=== PATIENT | female | born 1985 | race Caucasian/White ===

== ENCOUNTER → 2017-01-01 | Outpatient (CLI) | payer OTHER ==
[~2017-01-01] MED LIST: INSU1INJ SC; MTR600X PO; OXYC-57 PO; PRENTAB65 PO; SERT50TA PO
[2017-01-01 12:34] LABS: URINE APPEARANCE CLEAR (CLEAR); URINE BILIRUBIN NEG (NEG); URINE COLOR DK YELLOW; URINE EPITHELIAL CELL AUTO >30 /lpf (0-5); URINE NITRITE NEG (NEG); URINE SPECIFIC GRAVITY 1.019 (1.000-1.030); UROBILINOGEN NEG (NEG)
[2017-01-01 12:35] LABS: MANUAL MICROSCOPIC REQUIRED? NO; REVIEW REQ? NO
== END | disposition home or self-care (01) ==
LOC: C.LABSPEC 11:14
PROVIDERS: ATTEND Obstetrics & Gynecology
DX: Z34.00 Encounter for supervision of normal first pregnancy, unspecified trimester (principal)

== ENCOUNTER → 2017-01-07 | Outpatient (CLI) | payer OTHER | END | disposition home or self-care (01) | LOC: C.PAPS 09:01 | PROVIDERS: ATTEND Obstetrics & Gynecology | DX: Z34.01 Encounter for supervision of normal first pregnancy, first trimester (principal) ==

== ENCOUNTER → 2017-01-07 | Outpatient (CLI) | payer OTHER ==
[2017-01-12 00:15] LABS: CHLAMYDIA TRACH RNA*** NOT DETECTED (NOT DETECTED); GC (NEIS GONORRHOEAE)RNA** NOT DETECTED (NOT DETECTED)
== END | disposition home or self-care (01) ==
LOC: C.LABSPEC 17:38
PROVIDERS: ATTEND Obstetrics & Gynecology
DX: Z34.00 Encounter for supervision of normal first pregnancy, unspecified trimester (principal)

== ENCOUNTER → 2017-01-08 | Outpatient (CLI) | payer OTHER ==
[2017-01-08 09:34] LABS: BASO % 0.1 %; BASO ABS # 0.01 K/uL (0-0.2); COMPLETE YES; EOS % 0.9 %; HEMATOCRIT 39.3 % (37-47); IG% 0.2 %; LYMPH % 16.8 %; LYMPH ABS # 1.65 K/uL (1.2-3.4); MEAN CELL VOLUME 84.3 fL (80-100); MEAN CORPUSCULAR HEMOGLOBIN 28.5 pg (25-34); MEAN CORPUSCULAR HGB CONC 33.8 g/dl (32-36); MEAN PLATELET VOLUME 9.5 fL (7.4-10.4); PLATELET COUNT 312 K/uL (130-400); RED BLOOD COUNT 4.66 M/uL (4.2-5.4); WHITE BLOOD COUNT 9.83 K/uL (4.8-10.8)
== END | disposition home or self-care (01) ==
LOC: C.LAB 07:16
PROVIDERS: ATTEND Obstetrics & Gynecology
DX: Z34.00 Encounter for supervision of normal first pregnancy, unspecified trimester (principal)

== ENCOUNTER → 2017-03-04 | Outpatient (CLI) | payer OTHER ==
[2017-03-04 17:59] LABS: GTGD 50 Grams
== END | disposition home or self-care (01) ==
LOC: C.LAB1850 15:58
PROVIDERS: ATTEND Obstetrics & Gynecology
DX: Z34.01 Encounter for supervision of normal first pregnancy, first trimester (principal)

== ENCOUNTER → 2017-03-13 | Outpatient (CLI) | payer OTHER | END | disposition home or self-care (01) | LOC: C.LAB 07:45 | PROVIDERS: ATTEND Obstetrics & Gynecology | DX: O28.9 Unspecified abnormal findings on antenatal screening of mother (principal); Z3A.00 Weeks of gestation of pregnancy not specified ==

== ENCOUNTER → 2017-05-12 | Outpatient (CLI) | payer OTHER ==
[2017-05-12 09:47] LABS: URINE APPEARANCE CLEAR (CLEAR); URINE BILIRUBIN NEG (NEG); URINE COLOR YELLOW; URINE EPITHELIAL CELL AUTO >30 /lpf (0-5); URINE NITRITE NEG (NEG); URINE SPECIFIC GRAVITY 1.021 (1.000-1.030); UROBILINOGEN NEG (NEG)
[2017-05-12 09:55] LABS: MANUAL MICROSCOPIC REQUIRED? NO; REVIEW REQ? NO
== END | disposition home or self-care (01) ==
LOC: C.LAB 07:16
PROVIDERS: ATTEND Obstetrics & Gynecology
DX: Z34.02 Encounter for supervision of normal first pregnancy, second trimester (principal)

== ENCOUNTER → 2017-05-27 | Outpatient (CLI) | payer OTHER ==
[2017-05-27 19:24] LABS: URINE APPEARANCE CLEAR (CLEAR); URINE BILIRUBIN NEG (NEG); URINE COLOR YELLOW; URINE EPITHELIAL CELL AUTO >30 /lpf (0-5); URINE NITRITE NEG (NEG); URINE SPECIFIC GRAVITY 1.014 (1.000-1.030); UROBILINOGEN NEG (NEG)
[2017-05-27 19:47] LABS: MANUAL MICROSCOPIC REQUIRED? NO; REVIEW REQ? NO
== END | disposition home or self-care (01) ==
LOC: C.LABSPEC 17:48
PROVIDERS: ATTEND Obstetrics & Gynecology
DX: Z34.02 Encounter for supervision of normal first pregnancy, second trimester (principal)

== ENCOUNTER → 2017-05-29 | Outpatient (CLI) | payer OTHER ==
[2017-05-29 10:36] LABS: HEMATOCRIT 36.4 % (37-47)
== END ==
LOC: C.LAB 08:57
PROVIDERS: ATTEND Obstetrics & Gynecology
DX: Z34.02 Encounter for supervision of normal first pregnancy, second trimester (principal)

== ENCOUNTER → 2017-06-02 | Outpatient (CLI) | payer OTHER ==
[2017-06-02 09:58] LABS: CHOLESTEROL/HDL RATIO 3.1
== END ==
LOC: C.LAB 07:24
PROVIDERS: ATTEND Internal Medicine
DX: Z00.00 Encounter for general adult medical examination without abnormal findings (principal); Z13.220 Encounter for screening for lipoid disorders

== ENCOUNTER 2017-07-19 09:04 | Outpatient (CLI) | payer OTHER ==
[~2017-07-19] VITALS: Ht 172.7 cm; Wt 124.3 kg
[~2017-07-19 09:04] MED LIST changes: -INSU1INJ SC; -PRENTAB65 PO
[2017-07-19 09:46] VITALS: Ht 172.7 cm; Wt 124.3 kg
[2017-07-19] MEDS ORDERED: INSU1INJ SC (09:48)
[2017-07-19] MEDS ORDERED: PRENTAB65 PO (09:48)
== END 2017-07-19 09:40 | disposition home or self-care (01) ==
LOC: C.OPB 09:04 → C.LD 09:04 → C.OPB 09:40
PROVIDERS: ATTEND Obstetrics & Gynecology
DX: O24.419 Gestational diabetes mellitus in pregnancy, unspecified control (principal); Z3A.35 35 weeks gestation of pregnancy

== ENCOUNTER → 2017-07-23 | Outpatient (CLI) | payer OTHER ==
[~2017-07-23] MED LIST changes: +INSU1INJ SC; -MTR600X PO; -OXYC-57 PO; +PRENTAB65 PO; -SERT50TA PO
== END | disposition home or self-care (01) ==
LOC: C.LABSPEC 17:32
PROVIDERS: ATTEND Obstetrics & Gynecology
DX: Z34.03 Encounter for supervision of normal first pregnancy, third trimester (principal)

== ENCOUNTER 2017-08-10 17:35 | Inpatient (IN) | payer OTHER ==
[~2017-08-10] VITALS: Ht 172.7 cm; Wt 131.0 kg
[2017-08-10] MEDS ORDERED: SODIUM CHLORIDE 0.9% 1000ML 1,000 ML IV SCH (17:41)
[2017-08-10] MEDS ORDERED: LACTATED RINGER'S 1000ML 1,000 ML IV SCH (17:41)
[2017-08-10] MEDS ORDERED: LACTATED RINGER'S 1000ML 1,000 ML IV PRN (17:41)
[2017-08-10] MEDS ORDERED: DEXTROSE 5% 1000ML 1,000 ML IV SCH (17:41)
[2017-08-10] MEDS ORDERED: DEXTROSE 50% 50 ML SYR IV PRN (17:45)
[2017-08-10] MEDS ORDERED: INSULIN REGULAR 250 UNITS in SODIUM CHLORIDE 0.9% 250ML 250 ML IV SCH (18:00)
[2017-08-10] MEDS ORDERED: EpHEDrine SULFATE INJ 50 MG/ML AMP ONE (18:40)
[2017-08-10] MEDS ORDERED: FENTANYL 2MCG/ML ROPIV 1.25MG/ML 100ML BAG EPI ONE (18:40)
[2017-08-10] MEDS ORDERED: BUPIVACAINE 0.25% 30 ML VIAL ONE (18:40)
[2017-08-10] MEDS ORDERED: FENTANYL CITRATE INJ 50 MCG/1 ML 2 ML VIAL ONE (18:41)
[2017-08-10] MEDS ORDERED: OXYTOCIN 30 UNITS/500ML NSS IV ONE (18:49)
[2017-08-10 18:56] LABS: HEMATOCRIT 34.7 % (37-47); MEAN CELL VOLUME 82.8 fL (80-100); MEAN CORPUSCULAR HEMOGLOBIN 27.4 pg (25-34); MEAN CORPUSCULAR HGB CONC 33.1 g/dl (32-36); MEAN PLATELET VOLUME 9.5 fL (7.4-10.4); PLATELET COUNT 247 K/uL (130-400); RED BLOOD COUNT 4.19 M/uL (4.2-5.4); WHITE BLOOD COUNT 11.32 K/uL (4.8-10.8)
[2017-08-10] MEDS ORDERED: SUPERCREAM 0.870 % 15GM JAR EXT PRN (19:30)
[2017-08-10] MEDS ORDERED: ACETAMINOPHEN 325 MG TAB PO PRN (19:30)
[2017-08-10] MEDS ORDERED: OXYCODONE/ACETAMINOPHEN 5-325 TAB PO PRN (19:30)
[2017-08-10] MEDS ORDERED: LANOLIN OINT EXT PRN ×2 (19:30)
[2017-08-10] MEDS ORDERED: OXYTOCIN 30 UNITS/500ML NSS IV PRN (19:30)
[2017-08-10] MEDS ORDERED: BENZOCAINE 20% AER SPR 82.5 GM CAN EXT PRN (19:30)
[2017-08-10] MEDS ORDERED: HYDROCORTISONE ACETATE 25 MG SUPP PR PRN (19:30)
[2017-08-10] MEDS ORDERED: DIPHTHERIA/TETANUS/PERTUSSIS 0.5 ML SYR/VIAL IM. ONE (19:30)
[2017-08-10] MEDS ORDERED: ACETAMINOPHEN/CODEINE 300/30MG TAB PO PRN ×2 (19:30)
[2017-08-10 19:45] VITALS: Ht 172.7 cm; Wt 131.0 kg
--- NOTE | 2017-08-10 20:47 | DELIVERY SUMMARY ---
DATE OF OPERATION: 08/10/2017 VAGINAL DELIVERY NOTE Jacy arrived on August 10 in labor and delivery. She was 6 cm at that time with ruptured membranes. She had been sent from the office. She was group B strep negative, gestational diabetic on insulin, 38 plus weeks. She was admitted, contractions became painful and she rapidly progressed to fully dilated. She delivered the baby in left occiput anterior. Mouth and the nares were suctioned. There was no nuchal cord. Fluid was clear. The baby was delivered by gentle traction. No excessive force used. Live vigorous . Cord was clamped and cut. Cord gas was obtained. Cord blood was obtained. Placenta was removed with gentle traction. Local anesthetic was injected to repair second-degree tear with 3-0 Vicryl. Sponge and instrument counts were correct. Estimated blood loss 300 mL. I attest to the content of the Intraoperative Record and any orders documented therein. Any exception s are noted below.
[2017-08-10] MEDS: DOCUSATE SODIUM 100 MG CAP PO SCH (20:52)
[2017-08-10] MEDS: IBUPROFEN 600 MG TAB PO PRN (21:02)
[2017-08-10 23:40] VITALS: BP 122/72; PULSE 73; TEMP 36.8
[2017-08-11 03:25] VITALS: BP 122/83; PULSE 70; TEMP 36.7
--- NOTE | 2017-08-11 07:44 | Progress Note ---
Subjective Aug 11, 2017. Subjective conversation w/ patient, physical exam, chart review, lab review Ambulation: ambulating normally Voiding: no voiding problems Diet Tolerance: Regular Diet Lochia: Moderate Feeding Type: Breast Feeding Objective Vital Signs Date Time Temp Pulse Resp B/P (MAP) Pulse Ox O2 Delivery O2 Flow Rate FiO2 08/11/17 03:25 36.7 70 18 122/83 (96) Room Air 08/10/17 23:40 36.8 73 18 122/72 (89) Room Air 08/10/17 23:40 Room Air Physical Exam General Appearance: WELL-APPEARING Abdomen: non tender Fundus: Firm Extremities: no calf tenderness Laboratory Results Last 24 Hours Test 08/10/17 18:01 08/11/17 07:07 White Blood Count 11.32 K/uL Red Blood Count 4.19 M/uL Hemoglobin 11.5 g/dL Hematocrit 34.7 % Mean Corpuscular Volume 82.8 fL Mean Corpuscular Hemoglobin 27.4 pg Mean Corpuscular Hemoglobin Concent 33.1 g/dl RDW Standard Deviation 40.0 fL RDW Coefficient of Variation 13.2 % Platelet Count 247 K/uL Mean Platelet Volume 9.5 fL Assessment and Plan Post- Day#: 1 Continue Routine Care: ccc
[2017-08-11 07:46] VITALS: BP 123/98; PULSE 84; TEMP 36.4; O2SAT 97
[2017-08-11 07:59] LABS: HEMATOCRIT 31.6 % (37-47)
[2017-08-11] MEDS: DOCUSATE SODIUM 100 MG CAP PO SCH ×2 (08:14→19:58)
[2017-08-11] MEDS: PRENATAL VITAMIN TAB PO SCH (08:14)
[2017-08-11] MEDS: IBUPROFEN 600 MG TAB PO PRN ×2 (12:31→22:06)
[2017-08-11 13:00] VITALS: BP 124/73; PULSE 68; TEMP 36.8
[2017-08-11 16:00] VITALS: BP 102/64; PULSE 86; TEMP 36.7
[2017-08-11 20:00] VITALS: BP 121/80; PULSE 79; TEMP 36.7
[2017-08-11] MEDS ORDERED: BISACODYL 5 MG TABEC PO SCH (20:00)
--- NOTE | 2017-08-11 20:15 | Discharge Instructions ---
Discharge Instructions Date of Service Aug 11, 2017. Admission Reason for Admission: Gestational Diabetes Mellitis, Prom Discharge Discharge Diagnosis / Problem: recovery from normal delivery Discharge Goals Goal(s): Routine recovery after delivery Medications Continue Dispensed Medications: supercream, dermaplast, tucks, lansinoh Activity Recommendations Activity Limitations: per Instructions/Follow-up section . Instructions / Follow-Up Instructions / Follow-Up ACTIVITY RECOMMENDATIONS: * Gradual return to full activity over the next 2-3 weeks. * No lifting - nothing heavier than baby over the next 2-3 weeks. * Do not engage in vigorous exercise, sexual activity or sports until cleared by your physician. * Do not drive or operate any motorized equipment until cleared by your physician. * You may shower/bathe daily. MEDICATIONS: For discomfort or pain, you may use Acetaminophen (Tylenol), Ibuprofen (Advil), or Naproxen (Aleve) following the package directions. For constipation you may use Colace following the package directions. BREAST CARE: If you are not breast feeding: * Wear a supportive bra 24 hours a day for one to two weeks. * Avoid stimulating your breasts and nipples as much as possible during the first few weeks after delivery. * When taking a shower, have the warm water hit your back, not breasts. * When your breasts feel full, apply ice packs. Usually three to four times a day helps ease the discomfort. * Take a mild pain medication (Tylenol / Motrin) when you are uncomfortable. If breast feeding: * Use breast milk to lubricate nipples. Lansinoh cream may be used for sore nipples. You do not need to remove cream prior to breast feeding. If using a different brand of cream, check the label for directions regarding removal of cream prior to nursing. * Wear a supportive bra. * If having problems with breasts or breast feeding, call a senior sales consultant or your health care provider. EPISIOTOMY CARE: After delivery, if you have an episiotomy (stitches), the following steps will ease discomfort and aid healing. * For the first 24 hours after delivery, place ice packs next to your episiotomy to help reduce swelling. * After the first 24 hour-period, sitz baths, either portable or in the tub, are suggested. A shower with a shower arm sprayed over the episiotomy may be comforting. * Vannessa care should be done after each voiding and bowel movement. Squirt warm water from a plastic bottle over the perineum (region of the body between the anus and urinary opening) and pat dry. * Use Dermoplast to ease discomfort. Shake container. [place] directly over the episiotomy. Place a Tucks on a clean sanitary pad next to your episiotomy. SPECIAL CARE INSTRUCTIONS: When you are discharged from the hospital, it is important for you to follow the instructions listed below: * During the first week at home, you should be able to care for yourself and your baby. In addition, the usual light household activities are encouraged. * Limit your activities to the way you feel. Do not try to clean the house or move furniture. Be sensible. * If you actively engage in sports and have done so up until the time of your delivery, you may resume these activities as soon as you feel able. This may take up to one month or even longer. Use good judgment. * Continue to take your vitamins for at least six weeks after the of your baby. * Your diet need not be limited unless you were on a special diet before your delivery. Breast-feeding mothers need around 2500 calories per day and at least 64-80 ounces of fluid per day (8 to 10 glasses). * You should eat foods from the four major food groups. Crash diets or fad diets are to be avoided. Eating lean meats, fresh fruits and vegetables, low-fat dairy products, high fiber foods and a regular exercise program, will help you get back to your pre- weight without putting your health at risk. * Constipation is sometimes a problem after delivery. Take a mild laxative as needed. If breast feeding, Milk of Magnesia is acceptable to use. You may use a suppository or Fleets enema if no episiotomy. * A daily shower or tub bath is suggested. Be sure to thoroughly and gently dry the perineum. * A bloody vaginal discharge will usually continue until around four weeks post . A small amount of bleeding may continue for as long as six weeks. Vaginal discharge changes from the bright red bleeding after delivery to pink then brownish and finally yellowish-pink before becoming white and disappearing. * Bleeding may increase with activity. Your first period may come in 4-8 weeks. If you are breast feeding, your period may be delayed even longer. * Chillum (sex) can begin whenever both you and your partner feel comfortable and do not have any form of genital infection. It is recommended that you wait at least six weeks for internal and external healing to occur. If you have questions, please talk to your health care practitioner. A condom should be used to prevent infection and . * Foreplay, gentle intercourse and lubrication is very important the first several times to prevent pain. A water-based lubricant such as K-Y jelly or Astroglide may be used. * If you have RH negative blood and your baby is RH positive, you will receive RHOGAM by injection prior to discharge. The nurse will give you a card to keep with you that has the date and place that you received RHOGAM after delivery. * During your care, you had a Rubella screen done to check for the presence of rubella antibodies in your blood. If your test was negative, you will receive a Rubella vaccine prior to discharge. This vaccine may cause a fever, soreness at the injection site and flu-like symptoms. If these symptoms persist, notify your health care practitioner. is not advised for one month after a Rubella vaccine. * Verbalizes understanding of car seat law as reviewed with patient nursing. * Car Seat hand-out given and reviewed with patient by nursing. * Shaken baby information reviewed with patient by nursing. Call you doctor if: * Heavy bleeding (saturating several pads an hour) or passing clots the size of your fist. * A fever >101 degrees F (38.3 degrees C) on two occasions four hours apart and /or chills. * Unusual pain in the pelvic or vaginal areas. * "Baby Blues" lasting longer than two weeks. If you have any questions or concerns, call your health care practitioner at . FOLLOW UP VISIT: * Please call the office at to schedule a 6 week examination. It is important you keep this appointment. It is important for you to make arrangements for either yearly or twice yearly check-ups thereafter. Current Hospital Diet Patient's current hospital diet: Regular OB Diet Discharge Diet Recommended Diet: Regular OB Diet Pending Studies Studies pending at discharge: no Laboratory Results Lipid Panel Test 06/02/17 07:34 Range/Units Triglycerides Level 144 0-150 mg/dl Cholesterol Level 218 H 0-200 mg/dl HDL Cholesterol 70 mg/dl Cholesterol/HDL Ratio 3.1 LDL Cholesterol, Calculated 119 mg/dl Medical Emergencies . Who to Call and When: Medical Emergencies: If at any time you feel your situation is an emergency, please call 911 immediately. . Non-Emergent Contact Non-Emergency issues call your: Hand Router Operator . . "Provider Documentation" section prepared by Margaret Connolly. . VTE Core Measure Inpt VTE Proph given/why not?: Treatment not indicated
[2017-08-11 23:05] VITALS: BP 129/85; PULSE 76; TEMP 36.7
[2017-08-12] MEDS: IBUPROFEN 600 MG TAB PO PRN ×2 (02:34→11:28)
[2017-08-12] MEDS ORDERED: BISACODYL 10 MG SUPP PR PRN (07:00)
[2017-08-12 07:40] VITALS: BP 101/62; PULSE 72; TEMP 36.5
--- NOTE | 2017-08-12 07:51 | OB/GYN Progress Note ---
[facility] Progress Note Date of Service Aug 12, 2017. Subjective conversation w/ patient, physical exam, chart review, lab review Ambulation: limited ambulation (to bathroom thus far) Voiding: no voiding problems Passing Gas: Yes Diet Tolerance: Regular Diet Lochia: Small Feeding Type: Breast Feeding Pain: notes low cramping with breast feeding Notes: Found pt resting comfortably, no overnight events, denies any present concerns. Review of Systems Constitutional: No fever, No chills Respiratory: No cough, No shortness of breath Cardiac: No chest pain Abdomen: No nausea, No vomiting, No diarrhea Female : No dysuria Objective Vital Signs Date Time Temp Pulse Resp B/P (MAP) Pulse Ox O2 Delivery O2 Flow Rate FiO2 08/11/17 23:05 36.7 76 18 129/85 (100) Room Air 08/11/17 23:05 Room Air 08/11/17 20:00 36.7 79 18 121/80 (94) Room Air 08/11/17 16:00 36.7 86 16 102/64 (77) Room Air 08/11/17 15:50 Room Air 08/11/17 13:00 36.8 68 18 124/73 (90) Room Air 08/11/17 07:55 Room Air Physical Exam General Appearance: WELL-APPEARING, WD/WN Respiratory/Chest: lungs clear, normal breath sounds, no respiratory distress Cardiovascular: regular rate, rhythm, no murmur Abdomen: normal bowel sounds, non tender, soft Fundus: Firm, Non-Tender, Relation to Umbilicus (approx two above umbilicus) Extremities: normal inspection, no calf tenderness, + pedal edema (1+ (B) edema ) Laboratory Results Last 24 Hours Test 08/12/17 07:09 Assessment and Plan Post- Day Number: 2 Continue Routine Care: Resident Physician Supervision Note: I interviewed and examined the patient. Discussed with Dr. Cardoza and agree with findings and plan as documented in the note. Any exceptions or clarifications are listed here: [None] Documented By: Margaret Connolly 31F s/p , now PPD #2. - Blood type A positive. GBS negative. Rubella immune. - Vital signs reviewed and stable. - Pain controlled with motrin. - No leg swelling or tenderness on calf palpation. Encourage ambulation. - Encourage breast feeding. - Hemoglobin pre-delivery 11.5, post-delivery 10.3. Bleeding has improved. Continue to monitor clinically. - Continue routine post-vaginal delivery care. - Pt agreed with above plan, all current questions answered. Robert Cardoza MD, PGY1 Family Medicine
[2017-08-12 07:52] LABS: HEMATOCRIT 29.5 % (37-47); MEAN CORPUSCULAR HEMOGLOBIN 27.6 pg (25-34); MEAN CORPUSCULAR HGB CONC 32.9 g/dl (32-36); MEAN PLATELET VOLUME 8.9 fL (7.4-10.4); PLATELET COUNT 190 K/uL (130-400); RED BLOOD COUNT 3.51 M/uL (4.2-5.4); WHITE BLOOD COUNT 10.02 K/uL (4.8-10.8)
[2017-08-12] MEDS: PRENATAL VITAMIN TAB PO SCH (08:23)
[2017-08-12] MEDS: DOCUSATE SODIUM 100 MG CAP PO SCH (08:23)
[2017-08-12 14:00] VITALS: BP_DIAS 62; PULSE 72; TEMP 36.5
== END 2017-08-12 14:00 | disposition home or self-care (01) | DRG 775 ==
LOC: C.OPB 17:35 → C.OBG 17:35 → C.OPB 17:43 → C.OBG 17:43
PROVIDERS: ADMIT Obstetrics & Gynecology; ATTEND Obstetrics & Gynecology
PROC: 0KQM0ZZ Repair Perineum Muscle, Open Approach (ICD-10-PCS; principal; 2017-08-10)
PROC: 10E0XZZ Delivery of Products of Conception, External Approach (ICD-10-PCS; principal; 2017-08-10)
DX: O24.419 Gestational diabetes mellitus in pregnancy, unspecified control (principal); O70.1 Second degree perineal laceration during delivery; Z37.0 Single live birth; Z3A.38 38 weeks gestation of pregnancy

== ENCOUNTER → 2018-06-27 | Outpatient (CLI) | payer BC ==
[~2018-06-27] MED LIST changes: -INSU1INJ SC
== END | disposition home or self-care (01) ==
LOC: C.LAB 16:35
PROVIDERS: ATTEND Family Medicine
DX: R22.1 Localized swelling, mass and lump, neck (principal); R04.1 Hemorrhage from throat